=== PATIENT | female | born 1955 | race Caucasian/White ===

== ENCOUNTER → 2017-09-22 14:44 | Outpatient (CLI) | payer MEDICARE, OTHER, SELFPAY ==
--- NOTE | 2017-09-22 14:48 | RAD_ITS ---
STUDY: X-RAY - RIGHT KNEE REASON FOR EXAM: Female, 62 years old. Pain TECHNIQUE: 4 view(s) of the knee. COMPARISON: None. FINDINGS: There is no evidence of fracture or dislocation. There are no significant degenerative changes. There are no radiodense foreign bodies. RAD/Knee 4 or More Views IMPRESSION: No fracture or dislocation. Electronically Signed: West Hines, at 23:02 EDT Tel , Service support ,
--- NOTE | 2017-09-22 14:48 | RAD_ITS ---
STUDY: X-RAY - PELVIS AND BILATERAL HIPS REASON FOR EXAM: Female, 62 years old. Pain TECHNIQUE: Radiological exam, hip, bilateral, with pelvis when performed; minimum of 5 views COMPARISON: None. FINDINGS: There is a non-specific bowel gas pattern. Small metallic densities project over the pubic symphysis. Normal bilateral iliac wings, sacroiliac joints and visualized sacrum. Normal bilateral superior and inferior pubic rami. Normal pubic symphysis. Normal bilateral ischial tuberosities. Normal visualized right femoral head. Normal right acetabulum. Normal right hip joint. Normal visualized left femoral head. Normal left acetabulum. Normal left hip joint. RAD/Hips B/L min 2 views w/ Pelvis IMPRESSION: Normal x-ray examination of the pelvis and bilateral hips. Electronically Signed: Meek Gottlieb DO at 13:07 EDT Tel , Service support ,
--- NOTE | 2017-09-22 15:00 | RAD_ITS ---
STUDY: X-RAY - LEFT KNEE REASON FOR EXAM: Female, 62 years old. Pain TECHNIQUE: 4 view(s) of the knee. COMPARISON: None. FINDINGS: Normal visualized distal femur. Normal visualized proximal tibia and fibula. Normal proximal tibiofibular articulation. There is mild degenerative arthrosis of the medial femorotibial compartment. There is mild degenerative arthrosis of the lateral femorotibial compartment. There is mild degenerative arthrosis of the patellofemoral articulation. There are multiple calcific densities posterior to the knee suggesting probable joint bodies. RAD/Knee 4 or More Views IMPRESSION: Degenerative change. Calcific densities in the posterior aspect of the knee, popliteal fossa which may represent joint bodies. Degenerative this could represent soft tissue calcification. Electronically Signed: Tisha Medina MD at 16:08 EDT Tel , Service support ,
== END ==
PROVIDERS: Family Provider Family Medicine; PCP Family Medicine; Visit Provider Anesthesiology Pain Medicine
DX: M25.562 Pain in left knee (principal); M25.561 Pain in right knee; M25.552 Pain in left hip; M25.551 Pain in right hip
CPT/HCPCS: 73521; 73564

== ENCOUNTER → 2018-03-16 13:29 | Outpatient (CLI) | payer MEDICARE, OTHER, SELFPAY ==
--- NOTE | 2018-03-16 13:36 | RAD_ITS ---
STUDY: X-RAY CHEST REASON FOR EXAM: Female, 62 years old. Left-sided anterior rib and chest wall pain after fall 3 weeks ago TECHNIQUE: PA and lateral views of the chest. COMPARISON: None. FINDINGS: No airspace consolidation. Dense well-defined nodule of the lateral left midlung likely represents a granuloma. There is pleural and parenchymal fibrotic scarring of the right costophrenic angle. Normal size heart. Normal mediastinum and jason. Normal visualized pulmonary arteries. There is atherosclerotic calcification of the aortic arch with tortuosity. There are diffuse degenerative changes of the visualized thoracic spine. Normal visualized ribs, clavicles, and shoulders. There is no demonstrated abnormality of the visualized soft tissue structures of the upper abdomen. RAD/Chest PA and Lateral IMPRESSION: 1. No acute cardiopulmonary process. No obvious rib fracture. 2. Mild pleural parenchymal fibrotic scarring in the right lung base. Electronically Signed: Jamal Hyde MD at 8:42 EDT , Service support ,
== END ==
PROVIDERS: Family Provider Family Medicine; PCP Family Medicine; Referring Provider Anesthesiology Pain Medicine; Visit Provider Anesthesiology Pain Medicine
DX: R07.89 Other chest pain (principal); W19.XXXA Unspecified fall, initial encounter
CPT/HCPCS: 71046

== ENCOUNTER → 2018-12-28 | Outpatient (CLI) | payer MEDICARE, OTHER, SELFPAY ==
[2018-12-13 15:31] VITALS: BMI 28.6
--- NOTE | 2018-12-28 10:39 | ECHOD_ITS ---
Reason For Study: MURMUR Procedure This was a 2D Doppler, Color Flow transthoracic echocardiogram. The study was technically difficult. Due to heart rhythm. Exam performed in department. Left Ventricle Normal LV size. Left ventricular systolic function is normal. The estimated ejection fraction is 65 %. Stage 1 diastolic dysfunction. No regional wall motion abnormalities noted. Right Ventricle Normal RV size. Normal systolic function. Atria Normal left atrium. Normal right atrium. Mitral Valve Normal mitral valve. Tricuspid Valve Normal tricuspid valve. Mild (1+) tricuspid valve insufficiency. Pulmonary artery systolic pressure is 26 mmHg. Aortic Valve Trisinus/trileaflet aortic valve. Mild focal aortic valve calcification. Mild (1+) aortic valve insufficiency. Pulmonic Valve Normal pulmonic valve. Great Vessels Normal aortic root. The pulmonary artery is normal size. Normal inferior vena cava. Pericardium/Pleural No pericardial effusion. MMode/2D Measurements & Calculations LVIDd: 4.2 cm IVSd: 1.1 cm LVOT diam: 2.1 cm LVIDs: 2.7 cm LVPWd: 0.92 cm LVOT area: 3.4 cm2 RVDd: 2.8 cm FS: 37.0 % Ao root diam: 4.0 cm LAV(MOD-bp): 41.8 ml Aortic Valve Planimetry: 2.8 cm2 LAV(MOD-sp2): 41.8 ml LAV(MOD-sp4): 41.9 ml LA A4 area: 15.9 cm2 LA dimension(2D): 3.5 cm RA A4 area: 13.2 cm2 Time Measurements MV dec time: 0.18 sec Doppler Measurements & Calculations MV E max kameron: 78.3 cm/sec Lat Peak E' Kameron: 7.2 cm/sec Med Peak E' Kameron: 6.1 cm/sec MV A max kameron: 95.0 cm/sec E/E' lat: 10.8 E/E' med: 12.9 MV E/A: 0.82 Ao V2 max: 146.8 cm/sec AI max kameron: 408.5 cm/sec LV V1 max: 121.3 cm/sec Ao max P.6 mmHg AI max P.9 mmHg LV V1 max P.9 mmHg Ao V2 mean: 101.4 cm/sec LV V1 mean P.3 mmHg Ao mean P.6 mmHg AI dec slope: 190.7 cm/sec2 LV V1 mean: 86.4 cm/sec Ao V2 VTI: 28.7 cm AI P1/2t: 627.5 msec LV V1 VTI: 23.9 cm KIRSTIE(I,D): 2.8 cm2 KIRSTIE(V,D): 2.8 cm2 SV(LVOT): 81.4 ml PA V2 max: 86.7 cm/sec TR max kameron: 236.1 cm/sec TR max P.4 mmHg Interpretation Summary Normal LV size. Left ventricular systolic function is normal. The estimated ejection fraction is 65 %. Mild (1+) tricuspid valve insufficiency. Pulmonary artery systolic pressure is 26 mmHg. Stage 1 diastolic dysfunction. Ordering Physician: Agustin Rich Referring Physician: Henrique Stacy Performed By: Chari Dunlap, BRANNON, RVT
== END | disposition home or self-care (01) ==
LOC: CVS 10:38
PROVIDERS: Family Provider Family Medicine; PCP Family Medicine; Referring Provider Internal Medicine Cardiovascular Disease; Visit Provider Internal Medicine Cardiovascular Disease
DX: R55 Syncope and collapse (principal); R01.1 Cardiac murmur, unspecified
CPT/HCPCS: 93306

== ENCOUNTER → 2019-02-23 | Outpatient (CLI) | payer MEDICARE, OTHER, SELFPAY ==
[2019-02-23 09:51] VITALS: BMI 27.4
[2019-02-23 13:43] LABS: Anion Gap 10 (5-15); BUN 15 mg/dL (7-18); BUN/Creat Ratio 19.1 RATIO (10-20); Calcium,Total 8.7 mg/dL (8.5-10.1); Chloride 105 mmol/L (98-107); Creatinine, Serum 0.79 mg/dL (0.55-1.02); EST Glomerular Filtration Rate 78 mL/min (>60); Est Glom Filt Rate - Afr Amer 94 mL/min (>60); Glucose 121 mg/dL (74-106); Potassium 3.8 mmol/L (3.5-5.1); Sodium Level 142 mmol/L (136-145)
== END | disposition home or self-care (01) ==
LOC: LAB 12:08
PROVIDERS: Family Provider Family Medicine; PCP Family Medicine; Referring Provider Internal Medicine Cardiovascular Disease; Visit Provider Internal Medicine Cardiovascular Disease
DX: I10 Essential (primary) hypertension (principal)
CPT/HCPCS: 36415; 80048

== ENCOUNTER → 2019-05-02 10:34 | Outpatient (CLI) | payer MEDICARE, OTHER, SELFPAY ==
[2019-02-23 09:51] VITALS: BMI 27.4
--- NOTE | 2019-05-02 10:39 | MRI_ITS ---
STUDY: MRA OF THE HEAD WITHOUT CONTRAST REASON FOR EXAM: Female, 63 years old. rt pulsatile tinnitus. TECHNIQUE: 3-D [id number] (TOF) imaging was performed with MIPs. The study was performed unenhanced. COMPARISON: None. FINDINGS: Patent right cavernous carotid artery. Patent left cavernous carotid artery. Patent right A1 segments of the anterior cerebral artery. Patent left A1 segments of the anterior cerebral artery. Unremarkable anterior communicating artery (ACOM) region. Normal bilateral A2 segments of the anterior cerebral arteries. Patent right M1 and M2 segments of the middle cerebral arteries, with a unremarkable M1 bifurcation. Patent left M1 and M2 segments of the middle cerebral arteries, with a unremarkable M1 bifurcation. There is non-visualization of the right posterior communicating artery (PCOM). Normal left posterior communicating artery (PCOM). Patent basilar artery with a normal basilar bifurcation. Patent bilateral posterior cerebral arteries. MRI/MRA Head ONLY without Contrast IMPRESSION: Unremarkable MRA of the head Electronically Signed: Dani Ackerman MD at 11:33 EST Tel , Service support ,
== END ==
PROVIDERS: Family Provider Family Medicine; PCP Family Medicine; Referring Provider Otolaryngology Otolaryngology/Facial Plastic Surgery; Visit Provider Otolaryngology Otolaryngology/Facial Plastic Surgery
DX: H93.A1 Pulsatile tinnitus, right ear (principal)
CPT/HCPCS: 70544

== ENCOUNTER → 2019-06-13 11:05 | Outpatient (CLI) | payer MEDICARE, OTHER, SELFPAY ==
[2019-02-23 09:51] VITALS: BMI 27.4
[2019-06-13 12:44] LABS: CRP < 2.90 mg/L (0.0-3.0)
[2019-06-14 16:08] LABS: Endomysial Antibody IgA Negative (Negative)
[2019-06-14 17:48] LABS: Immunoglobulin A 365 mg/dL (87-352); t-Transglutaminase IgA <2 U/mL (0-3)
== END ==
PROVIDERS: Family Provider Family Medicine; PCP Family Medicine; Referring Provider Internal Medicine Gastroenterology; Visit Provider Internal Medicine Gastroenterology
DX: R19.7 Diarrhea, unspecified (principal)
CPT/HCPCS: 36415; 82784; 83516; 86140; 86255

== ENCOUNTER → 2019-10-10 15:41 | Outpatient (CLI) | payer MEDICARE, OTHER, SELFPAY ==
[2019-07-16 12:58] VITALS: BMI 24.7
== END ==
PROVIDERS: PCP Family Medicine; Referring Provider Internal Medicine Gastroenterology; Visit Provider Internal Medicine Gastroenterology
DX: K52.9 Noninfective gastroenteritis and colitis, unspecified (principal)
CPT/HCPCS: 36415

== ENCOUNTER → 2019-11-16 14:12 | Outpatient (CLI) | payer MEDICARE, OTHER, SELFPAY ==
[2019-07-16 12:58] VITALS: BMI 24.7
[2019-11-16 17:57] LABS: Absolute Lymphocyte Count 3.08 X10^3/uL (0.83-4.51); Absolute Neutrophil Count 4.9 X10^3/uL (2.0-7.7); Basophil# 0.02 X10^3/uL; Basophil% 0.2 % (0-1); Eosinophil# 0.17 X10^3/uL; Eosinophils% 1.9 % (0-5); Hematocrit 40.3 % (37-47); Hemoglobin 13.4 g/dL (12.0-15.0); Lymphocyte # 3.08 X10^3/ul (4.0); Lymphocyte % 34.4 % (19-41); Mean Corp Hgb Conc 33.3 g/dL (32-36); Mean Corpuscular Hgb 30.2 pg (27.0-32.0); Mean Platelet Vol. 11.1 fl (6.2-12.0); Monocyte# 0.73 X10^3/uL; Monocyte% 8.1 % (0-10); NRBC Flagged by Analyzer 0 % (0-5); Neutrophil # 4.94 X10^3/uL (2.7-7.7); Neutrophil % 55.2 % (47-70); Platelet Count 246 K/mm3 (150-450); RBC Distribution Width CV 12.9 % (11.6-14.6); RBC Distribution Width SD 42.1 fl (35.1-43.9); Red Blood Count 4.43 M/mm3 (4.2-5.4)
[2019-11-16 18:00] LABS: Anion Gap 7 (5-15); BUN 12 mg/dL (7-18); Chloride 103 mmol/L (98-107); EST Glomerular Filtration Rate 76 mL/min (>60); Est Glom Filt Rate - Afr Amer 92 mL/min (>60); Glucose 125 mg/dL (74-106); Potassium 3.9 mmol/L (3.5-5.1); Sodium Level 139 mmol/L (136-145)
[2019-11-20 20:07] LABS: QNTFERON TB Mitogen Value > 10.00 IU/mL (.); QNTFERON TB Nil Value 0.05 IU/mL (.); QNTFERON TB1+ Ag Value 0.25 IU/mL (.); QNTFERON TB2+ Ag Value 0.22 IU/mL (.)
[2019-11-21 05:06] LABS: QNTIFERON TB Positive Criteria Negative (Negative)
== END ==
PROVIDERS: PCP Family Medicine; Referring Provider Dermatology; Visit Provider Dermatology
DX: L40.0 Psoriasis vulgaris (principal); Z79.899 Other long term (current) drug therapy
CPT/HCPCS: 36415; 80048; 85025; 86480

== ENCOUNTER → 2020-11-12 14:44 | Outpatient (CLI) | payer MEDICARE, OTHER, SELFPAY ==
[2020-02-05 14:31] VITALS: BMI 24.3
--- NOTE | 2020-11-12 14:48 | RAD_ITS ---
STUDY: X-RAY - PELVIS REASON FOR EXAM: Female, 65 years old. PAIN TECHNIQUE: One view of the pelvis was obtained. COMPARISON: 09/22/2017 FINDINGS: There is a non-specific bowel gas pattern. Normal visualized soft tissue structures. Normal bilateral iliac wings, sacroiliac joints and visualized sacrum. Normal visualized bilateral superior and inferior pubic rami. Normal pubic symphysis. Normal ischial tuberosities. Normal visualized right femoral head. Normal right acetabulum. Normal right hip joint. Normal visualized left femoral head. Normal left acetabulum. Normal left hip joint. RAD/Pelvis 1 or 2 Views IMPRESSION: Normal x-ray examination of the pelvis. Electronically Signed: Franki Meier MD at 16:47 EDT Tel , Service support ,
--- NOTE | 2020-11-12 14:48 | RAD_ITS ---
STUDY: X-RAY CHEST REASON FOR EXAM: Female, 65 years old. PAIN TECHNIQUE: PA and lateral views of the chest. COMPARISON: 03/16/2018 FINDINGS: The lungs are clear and expanded. Slightly elevated right hemidiaphragm. Normal size heart. Normal mediastinum and jason. Normal visualized pulmonary arteries. There is atherosclerotic tortuosity of the aortic arch and descending thoracic aorta. Normal visualized thoracic spine. Normal visualized ribs, clavicles, and shoulders. There is no demonstrated abnormality of the visualized soft tissue structures of the upper abdomen. RAD/Chest PA and Lateral IMPRESSION: No active disease. Electronically Signed: Franki Meier MD at 16:48 EDT Tel , Service support ,
[2020-11-12 17:33] LABS: Absolute Lymphocyte Count 2.57 X10^3/uL (0.83-4.51); Absolute Neutrophil Count 3.9 X10^3/uL (2.0-7.7); Basophil# 0.03 X10^3/uL; Basophil% 0.4 % (0-1); Eosinophil# 0.21 X10^3/uL; Eosinophils% 2.9 % (0-5); Hematocrit 38.6 % (37-47); Hemoglobin 13.2 g/dL (12.0-15.0); Lymphocyte # 2.57 X10^3/ul (0.83-4.51); Mean Corp Hgb Conc 34.2 g/dL (32-36); Mean Corpuscular Hgb 29.9 pg (27.0-32.0); Mean Corpuscular Volume 87.3 fL (81-99); Mean Platelet Vol. 11.2 fl (6.2-12.0); Monocyte% 8.2 % (0-10); NRBC Flagged by Analyzer 0 % (0-5); Neutrophil % 53.1 % (47-70); Platelet Count 242 K/mm3 (150-450); RBC Distribution Width CV 12.8 % (11.6-14.6); RBC Distribution Width SD 40.4 fl (35.1-43.9); Red Blood Count 4.42 M/mm3 (4.2-5.4); White Blood Count 7.3 K/mm3 (4.4-11.0)
[2020-11-12 18:03] LABS: AST(SGOT) 30 U/L (15-37); Alanine Aminotransfer ALT/SGPT 39 U/L (13-56); Albumin, Serum 3.7 g/dL (3.2-5.0); Alkaline Phosphatase 103 U/L (45-117); Anion Gap 5 (5-15); BUN 12 mg/dL (7-18); BUN/Creat Ratio 15.3 RATIO (10-20); CRP < 2.90 mg/L (0.0-3.0); Calcium,Total 9.2 mg/dL (8.5-10.1); Chloride 103 mmol/L (98-107); Creatinine, Serum 0.78 mg/dL (0.55-1.02); EST Glomerular Filtration Rate 78 mL/min (>60); Est Glom Filt Rate - Afr Amer 94 mL/min (>60); Globulin 3.7 g/dL (2.2-4.2); Glucose 121 mg/dL (74-106); Potassium 4.2 mmol/L (3.5-5.1); Protein, Total 7.4 g/dL (6.4-8.2); Rheumatoid Factor < 10.0 IU/mL (<15); Sodium Level 138 mmol/L (136-145)
[2020-11-12 18:08] LABS: Erythrocyte Sedimentation Rate 9 mm/hr (0-30)
[2020-11-13 08:28] LABS: Hepatitis B Surface Antibody Non-Reactive; Hepatitis B Surface Antigen Non-Reactive (Nonreactive); Hepatitis C Antibody Non-Reactive (Nonreactive)
[2020-11-14 17:29] LABS: ANTINUCLEAR ANTIBODIES DIRECT Negative (Negative)
[2020-11-15 03:07] LABS: QNTFERON TB Mitogen Value > 10.00 IU/mL (.); QNTFERON TB Nil Value 0 IU/mL (.); QNTFERON TB1+ Ag Value 0.05 IU/mL (.); QNTFERON TB2+ Ag Value 0.06 IU/mL (.)
[2020-11-15 10:03] LABS: CCP IgG Antibodies 5 units (0-19); QNTIFERON TB Positive Criteria Negative (Negative)
== END ==
PROVIDERS: PCP Family Medicine; Referring Provider Internal Medicine Rheumatology; Visit Provider Internal Medicine Rheumatology
DX: L40.59 Other psoriatic arthropathy (principal); M79.7 Fibromyalgia; G60.0 Hereditary motor and sensory neuropathy; E11.42 Type 2 diabetes mellitus with diabetic polyneuropathy; I10 Essential (primary) hypertension; E78.5 Hyperlipidemia, unspecified; I25.10 Atherosclerotic heart disease of native coronary artery without angina pectoris; K21.9 Gastro-esophageal reflux disease without esophagitis; L66.1 Lichen planopilaris; Z86.73 Personal history of transient ischemic attack (TIA), and cerebral infarction without residual deficits; Z85.118 Personal history of other malignant neoplasm of bronchus and lung; Z79.899 Other long term (current) drug therapy
CPT/HCPCS: 36415; 71046; 72170; 80053; 85025; 85652; 86038; 86140; 86200; 86431; 86480; 86706; 86803; 87340

== ENCOUNTER → 2021-02-05 13:44 | Outpatient (CLI) | payer MEDICARE, OTHER, SELFPAY ==
[2021-02-05 15:11] LABS: Absolute Lymphocyte Count 2.67 X10^3/uL (0.83-4.51); Absolute Neutrophil Count 5.7 X10^3/uL (2.0-7.7); Basophil# 0.03 X10^3/uL; Basophil% 0.3 % (0-1); Eosinophil# 0.19 X10^3/uL; Eosinophils% 2.1 % (0-5); Hematocrit 38.4 % (37-47); Hemoglobin 13.2 g/dL (12.0-15.0); Lymphocyte # 2.67 X10^3/ul (0.83-4.51); Lymphocyte % 29.2 % (19-41); Mean Corp Hgb Conc 34.4 g/dL (32-36); Mean Corpuscular Hgb 30.6 pg (27.0-32.0); Mean Corpuscular Volume 88.9 fL (81-99); Mean Platelet Vol. 10.5 fl (6.2-12.0); Monocyte# 0.56 X10^3/uL; Monocyte% 6.1 % (0-10); NRBC Flagged by Analyzer 0 % (0-5); Neutrophil # 5.67 X10^3/uL (2.7-7.7); Platelet Count 259 K/mm3 (150-450); RBC Distribution Width CV 13.2 % (11.6-14.6); RBC Distribution Width SD 43.3 fl (35.1-43.9); Red Blood Count 4.32 M/mm3 (4.2-5.4); White Blood Count 9.2 K/mm3 (4.4-11.0)
[2021-02-05 15:34] LABS: AST(SGOT) 19 U/L (15-37); Alanine Aminotransfer ALT/SGPT 22 U/L (13-56); Albumin, Serum 3.7 g/dL (3.2-5.0); Alkaline Phosphatase 79 U/L (45-117); Anion Gap 3 (5-15); BUN 12 mg/dL (7-18); BUN/Creat Ratio 21.3 RATIO (10-20); Calcium,Total 8.8 mg/dL (8.5-10.1); Chloride 104 mmol/L (98-107); Creatinine, Serum 0.56 mg/dL (0.55-1.02); EST Glomerular Filtration Rate 114 mL/min (>60); Est Glom Filt Rate - Afr Amer 137 mL/min (>60); Globulin 3.6 g/dL (2.2-4.2); Glucose 105 mg/dL (74-106); Potassium 4.3 mmol/L (3.5-5.1); Protein, Total 7.3 g/dL (6.4-8.2); Sodium Level 136 mmol/L (136-145)
== END ==
PROVIDERS: PCP Family Medicine; Referring Provider Internal Medicine Rheumatology; Visit Provider Internal Medicine Rheumatology
DX: L40.59 Other psoriatic arthropathy (principal); M79.7 Fibromyalgia; L40.8 Other psoriasis; K76.0 Fatty (change of) liver, not elsewhere classified; G60.0 Hereditary motor and sensory neuropathy; E11.42 Type 2 diabetes mellitus with diabetic polyneuropathy; I10 Essential (primary) hypertension; E78.5 Hyperlipidemia, unspecified; Z79.899 Other long term (current) drug therapy; Z86.73 Personal history of transient ischemic attack (TIA), and cerebral infarction without residual deficits; Z85.118 Personal history of other malignant neoplasm of bronchus and lung
CPT/HCPCS: 36415; 80053; 85025

== ENCOUNTER → 2022-10-19 | Outpatient (CLI) | payer MEDICARE, OTHER, SELFPAY ==
--- NOTE | 2022-10-19 08:48 | BD_ITS ---
STUDY: DUAL ENERGY X-RAY ABSORPTIOMETRY / DXA REASON FOR EXAM: Female, 67 years old. M810 TECHNIQUE: Bone Mineral Density (BMD) measurements of lumbar spine and bilateral hips were obtained. COMPARISON: Comparison is made with prior study dated January 26, 2011. FINDINGS: Lumbar Spine (L1-L4): g/cm2 (0.904) / T-score (-1.4) / Z-score (0.7) Findings are suggestive of osteopenia with a low fracture risk. Left Femur Total: g/cm2 (0.512) / T-score (-3.5) / Z-score (-2.1) Left Femoral Neck: g/cm2 (0.444) / T-score (-3.6) / Z-score (-1.9) Right Femur Total: g/cm2 (0.460) / T-score (-4.0) / Z-score (-2.5) Right Femoral Neck: g/cm2 (0.417) / T-score (-3.9) / Z-score (-2.1) The T-Scores on the most recent prior examination were: Lumbar Spine (L1-L4): There has been worsening of bone density since the previous examination. Left Femur Total: which represents a worsening of 31.9%. Right Femur Total: which represents a worsening of 39.8%. BD/Dexa Bone Density Study IMPRESSION: The patient is considered osteoporotic as outlined below according to World Manuel Organization (WHO) criteria with a high fracture risk. There has been worsening of bone density since the previous examination. Reference Information: The T-score is the number of standard deviations above or below the standard which is normal for young adults at their peak bone mineral density. The World Health Organization (WHO) interprets the T-scores as follows: Above -1 Normal bone density Between -1 and -2.5 Osteopenia Equal to / or below -2.5 Osteoporosis As a practical clinical guideline, osteopenia may be graded as follows: Mild -1 through -1.5 Moderate -1.6 through -2.0 Severe -2.1 through -2.4 The Z-score is the number of standard deviations above or below age-matched controls. A Z-score of less than -1.5 would be considered abnormal. References: 1. NIH Osteoporosis and Related Bone Diseases www osteo.org 2. International Society for Clinical Densitometry www iscd.org 3. National Osteoporosis Foundation www nof.org Electronically Signed: Nixon Whitehead MD at 11:12 EDT ,
== END | disposition home or self-care (01) ==
LOC: OPBD 08:38
PROVIDERS: PCP Family Medicine; Referring Provider Internal Medicine Endocrinology, Diabetes & Metabolism; Visit Provider Internal Medicine Endocrinology, Diabetes & Metabolism
DX: M81.0 Age-related osteoporosis without current pathological fracture (principal)
CPT/HCPCS: 77080

== ENCOUNTER 2023-03-03 13:28 | Outpatient (REF) | payer SELFPAY ==
[2023-03-03 13:29] VITALS: BP 129/57; PULSE 56; RESP 18; TEMP 36.4; O2SAT 97
--- NOTE | 2023-03-03 14:05 | RAD_ITS ---
STUDY: X-RAY - LEFT KNEE REASON FOR EXAM: Female, 67 years old. Pain following a fall. TECHNIQUE: 4 view(s) of the knee. COMPARISON: Comparison is made with prior study dated September 22, 2017. FINDINGS: Normal visualized distal femur. Normal visualized proximal tibia and fibula. Normal proximal tibiofibular articulation. There is mild degenerative arthrosis of the medial femorotibial compartment. Normal lateral femorotibial compartment. There is mild degenerative arthrosis of the patellofemoral articulation. Stable tiny bony densities overlying the posterior popliteal fossa. Small joint effusion. RAD/Knee 4 or More Views IMPRESSION: Degenerative arthrosis. Electronically Signed: Nixon Whitehead MD at 14:26 EDT ,
[2023-03-03 15:08] VITALS: RESP 18
--- NOTE | 2023-03-03 15:27 | EDS_ITS ---
HPI History of Present Illness Chief Complaint: Lower Extremity Injury Detail of Chief Complaint: Left knee injury Informant: patient Occured/Mechanism Mechanism/Context: Yes fall Onset/Context/Timing Onset: Today Narrative Narrative: Patient presents after a fall and left knee injury. Patient is a history of Cmlllgu-Pstjr-Roayw disease and wears braces on her lower legs. After dropping her off today the hospital she was walking to her car when her legs became weak and she fell landing on her left knee. She does have pain and swelling noted to the left knee. She denies any other injury. [facility] Medical History Atherosclerosis of coronary artery of [place] heart without angina pectoris Fqexrtn-Rcqwz-Omzsp disease Chronic pain Depression Essential (primary) hypertension Fibromyalgia GERD (gastroesophageal reflux disease) Hyperlipidemia Lung cancer Lupus Near syncope Nonrheumatic aortic (valve) insufficiency Obesity Obstructive sleep apnea Paroxysmal supraventricular tachycardia Polyneuropathy Restrictive lung disease Rheumatoid arthritis Syncope (09/2018) Type 2 diabetes mellitus Home Medications cholecalciferol (vitamin D3) 1,250 mcg (50,000 unit) tablet 50,000 unit PO QWEEK 12/13/18 [History Last Taken Unknown] diclofenac sodium 1 % gel topical kit (Diclo Gel) 2 g topical DAILY 12/13/18 [History Last Taken Unknown] dulaglutide 0.75 mg/0.5 mL subcutaneous pen injector (Trulicity) 0.75 mg subcut QWEEK 12/13/18 [History Last Taken Unknown] fluticasone 250 mcg-salmeterol 50 mcg/dose blistr powdr for inhalation (Advair Diskus) 1 inh inhalation BID 12/13/18 [History Last Taken Unknown] folic acid 1 mg tablet 1 mg PO DAILY 12/13/18 [History Last Taken Unknown] hydrocodone 7.5 mg-acetaminophen 325 mg tablet PO #90 tabs 12/13/18 [History Last Taken Unknown] insulin lispro protamine-lispro 100 unit/mL (75-25) subcutaneous pen (Humalog Mix 75-25 KwikPen) 30 unit subcut .ac 12/13/18 [History Last Taken Unknown] metformin 500 mg tablet,extended release 24hr 500 mg PO DAILY 12/13/18 [History Last Taken Unknown] omega-3 fatty acids 1,000 mg capsule (Fish Oil Concentrate) 1,000 mg PO DAILY 12/13/18 [History Last Taken Unknown] tizanidine 4 mg tablet 4 mg PO QHS 12/13/18 [History Last Taken Unknown] baclofen 10 mg tablet 5 mg PO BID 02/05/20 [History Last Taken Unknown] budesonide 3 mg capsule,delayed,extended release 3 mg PO TID 02/05/20 [History Last Taken Unknown] esomeprazole magnesium 40 mg capsule,delayed release (Nexium) 40 mg PO DAILY 02/05/20 [History Last Taken Unknown] lisinopril 5 mg tablet 5 mg PO DAILY #90 tabs 02/05/20 [Rx Last Taken Unknown] metoprolol succinate 25 mg tablet,extended release 24 hr 25 mg PO DAILY 02/05/20 [History Last Taken Unknown] Allergy/AdvReac Type Severity Reaction Status Date / Time gabapentin [From Neurontin] AdvReac sleepy Verified 03/03/23 13:29 hydrochlorothiazide AdvReac hyponatremi Verified 03/03/23 13:29 a niacin AdvReac hot flashes Verified 03/03/23 13:29 pregabalin [From Lyrica] AdvReac elevated Verified 03/03/23 13:29 blood sugar Dqdtxzv-MKL-OnK Reductase AdvReac myalgia Verified 03/03/23 13:29 Inhibitor [Shkpkts-Mpj-Yhc Reductase Inhibitor] verapamil AdvReac palpitation Verified 03/03/23 13:29 s Family History Brother Kicqmwf-Mejhd-Ejgjw disease CAD (coronary artery disease) Sister Tdufspy-Niglz-Lpbnq disease Father CAD (coronary artery disease) Mother CAD (coronary artery disease) Surgical History History of back surgery History of bladder suspension procedure History of left heart catheterization (05/27/04) History of lobectomy of lung (2016) Hx of cholecystectomy Social History Smoking Status: Former smoker ROS ROS ED Constitutional Constitutional ED: Denies chills or fever(s) Eyes Eyes: Denies discharge from eye(s) ENT ENT ED: Denies discharge from eye(s), rhinorrhea or sore throat Cardiovascular Cardiovascular: Denies chest pain Respiratory/Chest Respiratory/Chest: Denies cough or dyspnea Gastrointestinal Gastrointestinal: Denies abdominal pain, nausea or vomiting Musculoskeletal Musculoskeletal: Reports extremity pain; Denies back pain Integumentary Denies Abrasions or rash Neurologic Neurologic: Denies headache(s) or weakness Allergic/Immunologic Allergic/Immunologic ED: Denies lip swelling or urticaria EXAM Physical Exam Const Vital Signs: 03/03/23 13:29 03/03/23 15:08 Temperature 97.5 F L Temperature Source Temporal Pulse Rate 56 L Respiratory Rate 18 18 Blood Pressure 129/57 H Blood Pressure Mean 81 Pulse Ox 97 Oxygen Delivery Method Room Air Positive well nourished and well developed General Appearance ED: well developed HEENT Reports moist mucous membranes Neck full ROM Chest Wall inspection of chest normal and palpation of chest normal Resp normal respiratory effort and clear to auscultation bilaterally Cardio regular rate and regular rhythm GI non-tender Extremity Extremity Narrative: Mild tenderness of patient over the left anterior knee. Edema noted just superior to the patella. No lacerations noted. Muscular atrophy noted in the lower legs bilaterally. Neuro oriented x3 Sensorium / Orientation: alert Psych mental status grossly normal MDM MDM MDM Narrative Medical decision making narrative: Left knee x-rays obtained per nursing protocol. Radiography Diagnostic Testing: Clinical Impression(s) from Imaging Studies Knee X-Ray 03/03/23 14:05 IMPRESSION: Degenerative arthrosis. Electronically Signed: Nixon Whitehead MD at 14:26 EDT Reading Location ID and State: [facility] / [place] , Service support , Treatment and Re-Evaluation Narrative: Left knee x-ray per my interpretation reveals arthritic changes with no evidence of acute fracture. Radiology interpretation is reviewed and agrees. Test results are discussed with the patient. She does have some focal swelling noted just superior to the patella. Cipriano wrap was applied for gentle compression. Patient has hydrocodone that she gets from pain management that she can use for pain. Patient is comfortable with supportive care at home and will follow-up as needed. Return instructions given. Discharge Plan Triage Chief Complaint: Lower Extremity Injury ED Provider: Cassandra Jeong Dx/Rx/DC Orders Clinical Impression: Bursitis, Fall, Contusion of knee, left Instructions: ED Contusion, Lower Extremity, ED Knee Effusion Prescriptions: No Action fluticasone propion-salmeterol [Advair Diskus] 250-50 mcg/dose blister with device 1 inh INHALATION BID hydrocodone-acetaminophen 7.5-325 mg tablet PO Qty: 90 Diclo Gel 1 % kit 2 g TOPICAL DAILY Humalog Mix 75-25 KwikPen 100 unit/mL (75-25) insulin pen 30 unit SC .ac Trulicity 0.75 mg/0.5 mL pen injector 0.75 mg SC QWEEK cholecalciferol (vitamin D3) 50,000 unit tablet 50,000 unit PO QWEEK tizanidine 4 mg tablet 4 mg PO QHS metformin 500 mg tablet extended release 24hr 500 mg PO DAILY folic acid 1 mg tablet 1 mg PO DAILY omega-3 fatty acids [Fish Oil Concentrate] 1,000 mg capsule 1,000 mg PO DAILY esomeprazole magnesium [Nexium] 40 mg capsule,delayed release(DR/EC) 40 mg PO DAILY budesonide 3 mg capsule,delayed,extend.release 3 mg PO TID metoprolol succinate 25 mg tablet extended release 24 hr 25 mg PO DAILY baclofen 10 mg tablet 5 mg PO BID Patient Comments: take 1/2 to 1 tablet by mouth three times a day if needed for SPASMS lisinopril 5 mg tablet 5 mg PO DAILY Qty: 90 3RF Primary Care Provider: Henrique Stacy Referrals: Henrique Stacy MD [Primary Care Provider] - 1 Week if not improving Disposition Disposition: Home, Self Care Discharge Date/Time: 03/03/23 15:48
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
== END 2023-03-03 15:48 | disposition home or self-care (01) ==
LOC: EDREF 13:28
PROVIDERS: PCP Family Medicine; Visit Provider Emergency Medicine
DX: S80.02XA Contusion of left knee, initial encounter (principal); M06.9 Rheumatoid arthritis, unspecified; E11.42 Type 2 diabetes mellitus with diabetic polyneuropathy; I10 Essential (primary) hypertension; I25.10 Atherosclerotic heart disease of native coronary artery without angina pectoris; E78.5 Hyperlipidemia, unspecified; M70.52 Other bursitis of knee, left knee; G60.0 Hereditary motor and sensory neuropathy; G89.29 Other chronic pain; F32.A Depression, unspecified; K21.9 Gastro-esophageal reflux disease without esophagitis; L93.2 Other local lupus erythematosus; E66.9 Obesity, unspecified; G47.33 Obstructive sleep apnea (adult) (pediatric); Z87.891 Personal history of nicotine dependence; Z79.899 Other long term (current) drug therapy; W01.0XXA Fall on same level from slipping, tripping and stumbling without subsequent striking against object, initial encounter; Y92.238 Other place in hospital as the place of occurrence of the external cause
CPT/HCPCS: 73564; 99284

== ENCOUNTER → 2023-10-19 | Outpatient (CLI) | payer MEDICARE, OTHER, SELFPAY ==
[2023-10-21 19:07] LABS: QNTFERON TB Mitogen Value > 10.00 IU/mL (.); QNTFERON TB Nil Value 0.01 IU/mL (.); QNTFERON TB1+ Ag Value 0.02 IU/mL (.); QNTFERON TB2+ Ag Value 0.05 IU/mL (.); QNTIFERON TB Positive Criteria Negative (Negative)
== END | disposition home or self-care (01) ==
LOC: MTLAB 14:35
PROVIDERS: PCP Family Medicine; Referring Provider Dermatology; Visit Provider Dermatology
DX: L40.0 Psoriasis vulgaris (principal); C34.90 Malignant neoplasm of unspecified part of unspecified bronchus or lung; M06.9 Rheumatoid arthritis, unspecified; K50.90 Crohn's disease, unspecified, without complications
CPT/HCPCS: 36415; 86480

== ENCOUNTER → 2024-08-29 | Outpatient (CLI) | payer MEDICARE, OTHER, SELFPAY ==
--- NOTE | 2024-08-29 07:30 | BONBX_PTH ---
PATIENT: CAMILA AGUIRRE LOC: [facility] U#:[id number] AGE/SX: 69/F ROOM: RE08/29/[address]: Dr. Anup Crooks MD : [id number] BED: DIS: 08/29/2024 SPEC #: [id number] RECD: 08/30/24 09:27 STATUS: TUSHAR REDaniel #: [id number] AGAPITO: 08/29/24 07:[address]: Anup Crooks DEPT: SURGICAL PATHOLOGY RECD BY: Elkin Villanueva ENTERED: 08/30/24 09:28 SP TYPE: Bone OTHR DR: Dr. Henrique Stacy MD Tissues: A - Vertebra, NOS Procedures: Decalcification bone/plaque Surgery Specimen Level IV HEADER OPERATION: Kyphoplasty at 11 under fluoroscopy and biopsy of T11 PRE-OP DIAGNOSIS: Radiculopathy, lumbosacral region TISSUE SUBMITTED: A- Body of T11 MICROSCOPIC DIAGNOSIS THROACIC VERTEBRA T11, CORE BIOPSY: -TRABECULAR BONE WITH TRILINEAGE HEMATOPOIESIS. MICROSCOPIC DESCRIPTION Slides are reviewed. GROSS DESCRIPTION A. Received in formalin labeled, Camila Aguirre, and designated body of T11, is a dark brown, cylindrical, bony, tissue core and multiple core fragments. The core measures 1.3 cm long by 0.3 cm in diameter. The core fragments aggregate to 0.6 x 0.6 x 0.1 cm. Totally submitted in one cassette after decalcification. 08/30/2024 CPT:57925,38382
== END | disposition home or self-care (01) ==
LOC: LABSPEC 15:29
PROVIDERS: PCP Family Medicine; Referring Provider Anesthesiology Pain Medicine; Visit Provider Anesthesiology Pain Medicine
DX: M54.17 Radiculopathy, lumbosacral region (principal)
CPT/HCPCS: 88304; 88305; 88311

== ENCOUNTER → 2024-10-23 | Outpatient (CLI) | payer MEDICARE, OTHER, SELFPAY ==
--- NOTE | 2024-10-23 12:43 | BD_ITS ---
PROCEDURE: DEXA BONE DENSITY STUDY 10/23/2024 REASON FOR EXAM: F, age 69 y/o . Postmenopausal. TECHNIQUE: DXA scan of sites with data reported below. REFERENCE LINKS: [facility] Position[facility] COMPARISON: Prior study dated October 19, 2022. FINDINGS: BMD and T-SCORES Lumbar spine: 0.943 g/cm2, T-score -1.0 Levels: L1 through L4 Change from prior: Gained a 4.3%. Left femoral neck: 0.463 g/cm2, T-score -3.5 Femoral neck comparison data not recommended for monitoring change. Left total hip: 0.569 g/cm2, T-score -3.1 Change from prior: Improvement 11.2%. Right femoral neck: 0.457 g/cm2, T-score -3.5 Femoral neck comparison data not recommended for monitoring change. Right total hip: 0.498 g/cm2, T-score -3.2 Change from prior: Gain of 8.4%. The World Health Organization has defined the following categories based on bone density: Normal bone density: T-score equal to or greater than -1.0 Osteopenia: T-score between -1.0 and -2.5 Osteoporosis: T-score equal to or less than -2.5 The National Osteoporosis Foundation (NOF) recommends pharmacological treatment for patients with a FRAX 10-year risk of 3% or higher for a hip fracture, or 20% or higher for a major osteoporotic fracture, to prevent osteoporosis and reduce fracture risk. The patient does meet the pharmacological treatment recommendations for prevention of osteoporosis. BD/Dexa Bone Density Study IMPRESSION: OSTEOPOROSIS. Recommend follow-up as clinically warranted. Reading Location: [place] [id number]
== END | disposition home or self-care (01) ==
LOC: OPBD 12:35
PROVIDERS: PCP Family Medicine; Referring Provider Internal Medicine Endocrinology, Diabetes & Metabolism; Visit Provider Internal Medicine Endocrinology, Diabetes & Metabolism
DX: M81.0 Age-related osteoporosis without current pathological fracture (principal)
CPT/HCPCS: 77080